=== PATIENT | male | born 1950 | race Caucasian/White ===

== ENCOUNTER → 2017-07-15 | Outpatient (RCR) | payer MEDICARE, OTHER | END | disposition home or self-care (01) | LOC: ONC 04-02 10:31 | PROVIDERS: ATTEND Radiology Radiation Oncology | DX: C61 Malignant neoplasm of prostate (principal) | CPT/HCPCS: 76873; 99214 ==

== ENCOUNTER 2017-08-19 14:04 | Outpatient (RCR) | payer MEDICARE, OTHER ==
[2017-10-24] MEDS ORDERED: GABA-488 PO (11:57)
[2017-10-24] MEDS ORDERED: ACHD5005 PO (11:57)
[2017-10-24] MEDS ORDERED: TRAZ100T92 PO (11:57)
[2017-10-24] MEDS ORDERED: LORA0.5T PO (11:57)
[2017-10-24] MEDS ORDERED: METF1000 PO (11:57)
[2017-10-24] MEDS ORDERED: ATOR10TA66 PO (11:57)
[2017-10-24] MEDS ORDERED: DULA1.5P2 SQ (11:57)
[2017-11-05] MEDS ORDERED: ACET1TAB43 PO (11:30)
[2017-11-05] MEDS ORDERED: CIPR-226 PO (11:30)
[2017-11-09] MEDS ORDERED: OXYC-202 PO (00:14)
== END 2017-11-17 | disposition home or self-care (01) ==
LOC: ONC 14:04
PROVIDERS: ATTEND Radiology Radiation Oncology
DX: C61 Malignant neoplasm of prostate (principal)
CPT/HCPCS: 76873

== ENCOUNTER 2017-10-24 11:45 | Outpatient (CLI) | payer MEDICARE, OTHER ==
[~2017-10-24] VITALS: Ht 167.6 cm; Wt 104.9 kg
[2017-10-24] MEDS ORDERED: ATOR10TA66 PO (11:57)
[2017-10-24] MEDS ORDERED: GABA-488 PO (11:57)
[2017-10-24] MEDS ORDERED: TRAZ100T92 PO (11:57)
[2017-10-24] MEDS ORDERED: METF1000 PO (11:57)
[2017-10-24] MEDS ORDERED: DULA1.5P2 SQ (11:57)
[2017-10-24] MEDS ORDERED: ACHD5005 PO (11:57)
[2017-10-24] MEDS ORDERED: LORA0.5T PO (11:57)
[2017-10-24 12:02] VITALS: BP 115/74
[2017-10-24 12:45] LABS: BILIRUBIN,URINE NEGATIVE (NEGATIVE); CLARITY,URINE CLEAR; COLOR,URINE YELLOW; GLUCOSE, URINE (UA) 2+ (NEGATIVE); KETONES,URINE NEGATIVE (NEGATIVE); LEUKOCYTE ESTERASE ,URINE 3+ (NEGATIVE); NITRITE,URINE NEGATIVE (NEGATIVE); PH,URINE 5 (5-9); PROTEIN,URINE NEGATIVE (NEGATIVE); UROBILINOGEN,URINE NORMAL (NORMAL)
--- NOTE | 2017-10-24 13:01 | Diagnostic Imaging Report ---
CLINICAL INDICATION: Preop chest x-ray for prostate brachytherapy. EXAM: Chest x-ray, PA and lateral views. COMPARISON: None. FINDINGS: LUNGS/PLEURA: There is a 6 mm dense nodular area involving the lateral left lung base. Otherwise, the lungs are clear. There is no pneumothorax. There is no pleural effusion. MEDIASTINUM: Unremarkable. PULMONARY VASCULATURE: Unremarkable. HEART: Unremarkable. BONES/EXTRATHORACIC SOFT TISSUE: There are moderately hypertrophic degenerative osteophytes scattered throughout the thoracic spine. IMPRESSION: 1. There is no radiographic evidence of acute cardiopulmonary process. 2. There is a 6 mm dense nodular area overlying the lateral left lung base. This may represent a calcified granuloma or sclerosis of the adjacent anterior left T7 rib versus parenchymal opacity. Comparison with prior chest x-rays would help better evaluate; otherwise, a chest CT scan is suggested for further evaluation. Dictated by: Dictated on workstation # [id number]
[2017-10-24 13:09] LABS: BACTERIA,URINE NEGATIVE /HPF; SQUAMOUS EPITHELIAL CELL,UR RARE /HPF
== END 2017-10-24 12:30 ==
LOC: PREOP 11:45
PROVIDERS: ATTEND Radiology Radiation Oncology
DX: Z01.810 Encounter for preprocedural cardiovascular examination (principal); Z01.812 Encounter for preprocedural laboratory examination; Z11.2 Encounter for screening for other bacterial diseases; C61 Malignant neoplasm of prostate; R82.90 Unspecified abnormal findings in urine
CPT/HCPCS: 71046; 81000; 87081; 87088

== ENCOUNTER 2017-11-05 10:00 | Day surgery (SDC) | payer MEDICARE, OTHER ==
[~2017-11-05] VITALS: Ht 167.6 cm; Wt 104.9 kg
[~2017-11-05 10:00] MED LIST: ACHD5005 PO; ATOR10TA66 PO; DULA1.5P2 SQ; GABA-488 PO; LORA0.5T PO; METF1000 PO; TRAZ100T92 PO
[2017-11-05] MEDS ORDERED: LACTATED RINGERS 1,000 ML IV PRN (10:05)
[2017-11-05] MEDS ORDERED: LEVOFLOXACIN 500 MG/100 ML IV 100 ML IV ONE (10:15)
[2017-11-05 10:27] VITALS: BP 128/86
--- NOTE | 2017-11-05 11:13 | Progress Note-Pre Operative ---
Pre-Operative Progress Note H&P Reviewed The H&P was reviewed, patient examined and no changes noted. Date Seen by Provider: Nov 05, 2017 Time Seen by Provider: 11:12 Date H&P Reviewed: Nov 05, 2017 Time H&P Reviewed: 11:13 Pre-Operative Diagnosis: Prostate cancer cT2b, PSA 9.1, [place] 9 OREN SUBRAMANIAN MD Nov 05, 2017 11:13
--- NOTE | 2017-11-05 11:19 | Discharge Inst-Simple/Standard ---
Discharge Inst-Standard Discharge Medications New, Converted or Re-Newed RX: RX Given to Pt/Family Patient Instructions/Follow Up Plan of Care/Instructions/FU: 1)One month follow up post implant at cancer center 12/03/17 at 10:30 am 2)Keep appt with Dr. Barber as scheduled for 12/02/17 at 10:30 am Activity as Tolerated: Yes Discharge Diet: No Restrictions Other Inst to Patient Take maria out 2 days post implant at 8 am. OREN SUBRAMANIAN MD Nov 05, 2017 11:18
[2017-11-05] MEDS ORDERED: ACET1TAB43 PO (11:30)
[2017-11-05] MEDS ORDERED: CIPR-226 PO (11:30)
[2017-11-05] MEDS ORDERED: proPOfol 200 MG/20 ML (DIPRIVAN) VIAL IV ONE (11:35)
[2017-11-05] MEDS ORDERED: SEVOFLURANE (ULTANE) 15 ML INHAL SOLN ONE ×3 (11:35→12:00)
[2017-11-05] MEDS ORDERED: LIDOCAINE PF 2% 5 ML (XYLOCAINE) VIAL ONE (11:35)
[2017-11-05] MEDS ORDERED: ONDANSETRON 4 MG/2 ML (SDV) Z0FRAN ONE (11:35)
[2017-11-05] MEDS ORDERED: MIDAZOLAM 2 MG/2 ML (VERSED) VIAL ONE (11:36)
[2017-11-05] MEDS ORDERED: fentaNYL INJECTION 100 MCG/2 ML AMP ONE (11:36)
[2017-11-05] MEDS ORDERED: NEOSTIGMINE (BLOXIVERZ ) 1 MG/1ML 10 ML VIAL ONE (12:45)
[2017-11-05] MEDS ORDERED: GLYCOPYRROLATE 0.2 MG/ML (ROBINUL) 2 ML VIAL ONE (12:45)
[2017-11-05] MEDS ORDERED: ROCURONIUM 50 MG/5 ML (ZEMURON) VIAL IV ONE (13:07)
[2017-11-05 14:20] VITALS: BP 95/61
--- NOTE | 2017-11-05 14:26 | Progress Note-Post Operative ---
Post-Operative Progess Note Surgeon (s)/Manager Cable (s) Surgeon OREN SUBRAMANIAN MD Manager Cable: Jak BENDER MD Pre-Operative Diagnosis Prostate cancer cT2b, PSA 9.1, [place] 9 Post-Operative Diagnosis Same as pre-op Procedure & Operative Findings Date of Procedure 11/05/17 Procedure Performed/Findings 67% Cesium 131 permanent prostate seed implant with cystogram Prostate volume 35.8 cc Anesthesia Type General Estimated Blood Loss Estimated blood loss (mL): Minimal Specimens/Packing Specimens Removed None Packing: None OREN SUBRAMANIAN MD Nov 05, 2017 14:26
[2017-11-05 14:50] VITALS: BP 103/72
[2017-11-05 15:35] VITALS: BP 103/72
--- NOTE | 2017-11-05 19:06 | Diagnostic Imaging Report ---
INDICATION: Brachytherapy EXAMINATION: Fluoroscopy. Fluoroscopic assistance was provided for Dr. Min Hein. 9 seconds of fluoroscopy time was utilized. FINDINGS: A single spot film of the pelvis was received from the OR. There is a Isaac catheter within the bladder. The bladder has been partially opacified but for the most part the bladder appears to be decompressed. There are numerous radiopaque metallic seed implants in the region of the prostate gland. IMPRESSION: Fluoroscopic assistance was provided for Dr. Min Trujillo. Dictated by: Dictated on workstation # [id number]
== END 2017-11-05 15:35 | disposition home or self-care (01) ==
LOC: SDC 10:00
PROVIDERS: ATTEND Radiology Radiation Oncology
DX: C61 Malignant neoplasm of prostate (principal); E78.5 Hyperlipidemia, unspecified; G47.33 Obstructive sleep apnea (adult) (pediatric); Z87.891 Personal history of nicotine dependence; Z87.442 Personal history of urinary calculi; E11.9 Type 2 diabetes mellitus without complications; E66.9 Obesity, unspecified; Z79.899 Other long term (current) drug therapy; Z79.84 Long term (current) use of oral hypoglycemic drugs; Z88.8 Allergy status to other drugs, medicaments and biological substances; Z68.37 Body mass index [BMI] 37.0-37.9, adult; F32.9 Major depressive disorder, single episode, unspecified
CPT/HCPCS: 76965; 77290; 77318; 77332; 77336; 77470; 77778; 82962

== ENCOUNTER 2017-11-08 21:32 | Emergency (ER) | payer MEDICARE, OTHER ==
[~2017-11-08] VITALS: Ht 167.6 cm; Wt 99.8 kg
[~2017-11-08 21:32] MED LIST changes: +ACET1TAB43 PO; +CIPR-226 PO
[2017-11-08] MEDS ORDERED: NS IV 1000 ML 1,000 ML IV SCH (22:15)
[2017-11-08] MEDS ORDERED: KETOROLAC 30 MG/ML VIAL IVP ONE (22:15)
[2017-11-08] MEDS ORDERED: fentaNYL INJECTION 100 MCG/2 ML AMP IVP ONE (22:15)
--- NOTE | 2017-11-08 22:15 | ED GU-Male ---
General Chief Complaint: -Male Stated Complaint: PROSTATE PAIN Nursing Triage Note: PT TO ED 7 W/ S.O. FOR C/O PAIN TO BLADDER ONSET AFTER HAVING GEORGES REMOVED YESTERDAY AFTER SEED PLACEMENT FOR PROSTATE CA. REPORTS DID TALK W/ PCP CONCERNING PAIN, FLOMAX WAS PRESCRIBED BUT DENIES IMPROVEMENT W/ FLOMAX ET TYLENOL W/ CODEINE Source: patient Exam Limitations: no limitations (JEFFRY VASQUEZ APRN) History of Present Illness Date Seen by Provider: Nov 08, 2017 Time Seen by Provider: 22:14 Initial Comments To ER with perineal, suprapubic and right-sided abdominal pain. He had prostate seeds placed [address] Trujillo for prostate cancer. He's been taking his prescribed Tylenol No. 3 at home without relief. Left over hydrocodone which she also took without relief. Timing/Duration: this morning Severity/Quality: moderate Location: unknown Radiation: none Activities at Onset: none Associated Symptoms: dysuria (JEFFRY VASQUEZ APRN) Allergies and Home Medications Allergies Coded Allergies: prednisone (Verified Allergy, Mild, ELEVATED BLOOD SUGARS, 10/24/17) Home Medications Acetaminophen with Codeine 1 Each Tablet, 1 EACH PO PRN, #15 Ref 0 Prescribed by: OREN SUBRAMANIAN on 11/05/17 1130 Atorvastatin Calcium 10 Mg Tablet, 10 MG PO DAILY, (Reported) Ciprofloxacin HCl 250 Mg Tablet, 250 MG PO BID for 3 Days, #6 Ref 0 Prescribed by: OREN SUBRAMANIAN on 11/05/17 1130 Dulaglutide 1.5 Mg/0.5 Ml Pen.injctr, 1.5 MG SQ DAILY, (Reported) Gabapentin 300 Mg Capsule, 300 MG PO DAILY, (Reported) Hydrocodone Bit/Acetaminophen 1 Tab Tab, 1 TAB PO PRN, (Reported) Lorazepam 0.5 Mg Tablet, 0.5 MG PO PRN, (Reported) Metformin HCl 1,000 Mg Tablet, 1,000 MG PO DAILY, (Reported) Trazodone HCl 100 Mg Tablet, 100 MG PO HS, (Reported) Constitutional: see HPI EENTM: see HPI Respiratory: no symptoms reported Cardiovascular: no symptoms reported Genitourinary: no symptoms reported Musculoskeletal: no symptoms reported Skin: no symptoms reported Psychiatric/Neurological: No Symptoms Reported Endocrine: No Symptoms Reported (JEFFRY VASQUEZ APRN) Past Olwgjjt-Akkwmx-Rhlosu Hx Patient Social History Alcohol Use: Denies Use Recreational Drug Use: No Smoking Status: Never a Smoker Former Smoker, Quit: Oct 24, 2013 Recent Foreign Travel: No Contact w/Someone Who Travel: No Recent Infectious Disease Expo: No Recent Hopitalizations: No Physical Abuse: No Sexual Abuse: No Mistreated: No Fear: No (JEFFRY VASQUEZ APRN) Immunizations Up To Date Date of Influenza Vaccine: Aug 04, 2017 (JEFFRY VASQUEZ APRN) Seasonal Allergies Seasonal Allergies: No (JEFFRY VASQUEZ APRN) Surgeries History of Surgeries: Yes (KIDNEY STONES, INGUINAL HERNIA) (JEFFRY VASQUEZ APRN) Respiratory History of Respiratory Disorde: Yes Respiratory Disorders: Sleep Apnea Currently Using CPAP: Yes (JEFFRY VASQUEZ APRN) Cardiovascular History of Cardiac Disorders: Yes Cardiac Disorders: High Cholesterol (JEFFRY VASQUEZ APRN) Neurological History of Neurological Disord: No (JEFFRY VASQUEZ APRN) Reproductive System Hx Reproductive Disorders: No Sexually Transmitted Disease: No HIV/AIDS: No (JEFFRY VASQUEZ APRN) Genitourinary Genitourinary Disorders: Prostate Problems, Kidney Stones (JEFFRY VASQUEZ APRN) Gastrointestinal History of Gastrointestinal Di: Yes Gastrointestinal Disorders: Polyps (JEFFRY VASQUEZ APRN) Musculoskeletal History of Musculoskeletal Dis: Yes Musculoskeletal Disorders: Chronic Back Pain (JEFFRY VASQUEZ APRN) Endocrine History of Endocrine Disorders: Yes (JEFFRY VASQUEZ APRN) HEENT Loss of Vision: Bilateral Hearing Impairment: Denies (JEFFRY VASQUEZ APRN) Cancer History of Cancer: Yes Cancer: Prostate (JEFFRY VASQUEZ APRN) Psychosocial History of Psychiatric Problem: No Suicide Risk Score: 0 (JEFFRY VASQUEZ APRN) Integumentary History of Skin or Integumenta: No (JEFFRY VASQUEZ APRN) Blood Transfusions History of Blood Disorders: No Adverse Reaction to a Blood Tr: No (JEFFRY VASQUEZ APRN) Physical Exam Vital Signs Vital Sign - Last 12Hours 11/08/17 21:47 Temp 97.9 Pulse 88 Resp 20 B/P (MAP) 141/85 (103) Pulse Ox 95 O2 Delivery Room Air (PILI CALIXTO) Vital Signs Capillary Refill : Less Than 3 Seconds (JEFFRY VASQUEZ APRN) General Appearance: WD/WN, no apparent distress HEENT: PERRL/EOMI, normal ENT inspection Neck: non-tender, full range of motion Respiratory: no respiratory distress, no accessory muscle use Gastrointestinal: non tender, soft Extremities: normal range of motion, non-tender Neurologic/Psychiatric: alert, normal mood/affect, oriented x 3 Skin: normal color, warm/dry (JEFFRY VASQUEZ APRN) Progress/Results/Core Measures Suspected Sepsis Recent Fever Within 48 Hours: No Infection Criteria Present: None New/Unexplained Altered Menta: No Sepsis Screen: No Definite Risk Sepsis Diagnosis: SIRS Temperature:97.9 Pulse: 88 Respiratory Rate: 20 Blood Pressure 141 /85 Mean: 103 (JEFFRY VASQUEZ APRN) Results/Orders Lab Results Laboratory Tests Test 11/08/17 22:16 11/08/17 23:43 Range/Units White Blood Count 9.1 4.3-11.0 10^3/uL Red Blood Count 4.22 L 4.35-5.85 10^6/uL Hemoglobin 13.5 13.3-17.7 G/DL Hematocrit 38 L 40-54 % Mean Corpuscular Volume 90 80-99 FL Mean Corpuscular Hemoglobin 32 25-34 PG Mean Corpuscular Hemoglobin Concent 36 32-36 G/DL Red Cell Distribution Width 12.2 10.0-14.5 % Platelet Count 200 130-400 10^3/uL Mean Platelet Volume 10.0 7.4-10.4 FL Neutrophils (%) (Auto) 77 H 42-75 % Lymphocytes (%) (Auto) 12 12-44 % Monocytes (%) (Auto) 8 0-12 % Eosinophils (%) (Auto) 3 0-10 % Basophils (%) (Auto) 0 0-10 % Neutrophils # (Auto) 7.0 1.8-7.8 X 10^3 Lymphocytes # (Auto) 1.1 1.0-4.0 X 10^3 Monocytes # (Auto) 0.8 0.0-1.0 X 10^3 Eosinophils # (Auto) 0.2 0.0-0.3 10^3/uL Basophils # (Auto) 0.0 0.0-0.1 10^3/uL Sodium Level 140 135-145 MMOL/L Potassium Level 3.5 L 3.6-5.0 MMOL/L Chloride Level 104 98-107 MMOL/L Carbon Dioxide Level 20 L 21-32 MMOL/L Anion Gap 16 H 5-14 MMOL/L Blood Urea Nitrogen 11 7-18 MG/DL Creatinine 0.83 0.60-1.30 MG/DL Estimat Glomerular Filtration Rate > 60 BUN/Creatinine Ratio 13 Glucose Level 167 H 70-105 MG/DL Calcium Level 9.6 8.5-10.1 MG/DL Urine Color RED H Urine Clarity BLOODY H Urine pH 5 5-9 Urine Specific [place] 1.015 L 1.016-1.022 Urine Protein 4+ NEGATIVE Urine Glucose (UA) NEGATIVE NEGATIVE Urine Ketones 1+ H NEGATIVE Urine Nitrite NEGATIVE NEGATIVE Urine Bilirubin NEGATIVE NEGATIVE Urine Urobilinogen NORMAL NORMAL MG/DL Urine Leukocyte Esterase 2+ H NEGATIVE Urine RBC (Auto) 5+ H NEGATIVE Urine RBC TNTC H /HPF Urine WBC 0-2 /HPF Urine Squamous Epithelial Cells RARE /HPF Urine Crystals NONE /LPF Urine Bacteria TRACE /HPF Urine Casts NONE /LPF Urine Mucus NEGATIVE /LPF Urine Culture Indicated NO (PILI CALIXTO) Medications Given in ED Current Medications Medications Dose Ordered Sig/Nima Route Start Time Stop Time Status Last Admin Dose Admin Fentanyl Citrate 50 mcg ONCE ONCE IVP 11/08/17 22:15 11/08/17 22:16 DC 11/08/17 22:20 50 MCG Iohexol 100 ml ONCE ONCE IV 11/08/17 23:15 11/08/17 23:16 DC 11/08/17 23:16 100 ML Ketorolac Tromethamine 30 mg ONCE ONCE IVP 11/08/17 22:15 11/08/17 22:16 DC 11/08/17 22:21 30 MG Sodium Chloride 100 ml ONCE ONCE IV 11/08/17 23:15 11/08/17 23:16 DC 11/08/17 23:16 80 ML (PILI CALIXTO) Vital Signs/I&O Vital Sign - Last 12Hours 11/08/17 21:47 Temp 97.9 Pulse 88 Resp 20 B/P (MAP) 141/85 (103) Pulse Ox 95 O2 Delivery Room Air (PILI CALIXTO) Vital Signs/I&O Capillary Refill : Less Than 3 Seconds (JEFFRY VASQUEZ APRN) Blood Pressure Mean: 103 Progress Note : Time: 00:05 Progress Note Distended bladder on CT as well as postvoid residual showing about 600 cc organ would insert a Georges catheter get a urine and if he has an infection we will treat it; otherwise we will have him follow up with urology outpatient. (PILI CALIXTO) Diagnostic Imaging Diagonstic Imaging: CT Plain Films/CT/US/NM/MRI: abdomen, pelvis Comments Enlarged bladder distended with urine and moderate distention of bilateral ureters. Stat read impression: Significant distention of the urinary bladder and mild distention of the bilateral hydronephrosis. Recent postoperative changes with placement of radiation seeds in the prostate. No evidence of bowel obstruction. Reviewed: Reviewed [place] Study, Reviewed by Me (PILI CALIXTO) Transfer of Care Transfer of Care Time: 23:00 Care transferred to: Terrell (PILI CALIXTO) Departure Impression Impression: Primary Impression: Postprocedural urinary retention Disposition: HOME, SELF-CARE Condition: Improved Departure-Patient Inst. Decision time for Depature: 00:12 (PILI CALIXTO) Referrals: NO,LOCAL PHYSICIAN (PCP/Family) Primary Care Physician Patient Instructions: How to Care for Your Georges Catheter, Male Add. Discharge Instructions: No evidence of infection on your urine analysis. Keep Georges catheter clean with soap and water daily. If you begin to have fevers, chills, nausea and vomiting all up with your primary care physician or urologist or return to the ER immediately. Otherwise Friday morning tomorrow call your urologist and plan to get an appointment to follow up for having a Georges catheter placed. Always keep the Georges catheter bag below the level of your bladder. Drink plenty of fluids. If you have more pain you may take Percocet 1-2 tablets every 6 hours as needed to control your pain but if you're using hydrocodone or Percocet you should also be using a daily laxative such as MiraLAX to prevent constipation. All discharge instructions reviewed with patient and/or family. Voiced understanding. Scripts Oxycodone HCl/Acetaminophen (Percocet 10-325 mg Tablet) 1 Each Tablet 1-2 EACH PO Q6H Y for BREAKTHROUGH PAIN, #30 TAB 0 Refills Prov: PILI CALIXTO 11/09/17 JEFFRY VASQUEZ APRN Nov 08, 2017 22:15 PILI CALIXTO Nov 09, 2017 00:06
[2017-11-08] MEDS ORDERED: NS IV 1000 ML 1,000 ML ONE (22:17)
[2017-11-08 22:32] LABS: BASOPHILS % (AUTO) 0 % (0-10); EOSINOPHILS # (AUTO) 0.2 10^3/uL (0.0-0.3); EOSINOPHILS % (AUTO) 3 % (0-10); HEMATOCRIT 38 % (40-54); HEMOGLOBIN 13.5 G/DL (13.3-17.7); LYMPHOCYTES # (AUTO) 1.1 X 10^3 (1.0-4.0); LYMPHOCYTES % (AUTO) 12 % (12-44); MEAN CORPUSCULAR HEMOGLOBIN 32 PG (25-34); MEAN CORPUSCULAR HGB CONC 36 G/DL (32-36); MEAN CORPUSCULAR VOLUME 90 FL (80-99); MONOCYTES # (AUTO) 0.8 X 10^3 (0.0-1.0); MONOCYTES % (AUTO) 8 % (0-12); NEUTROPHILS % (AUTO) 77 % (42-75); PLATELET COUNT 200 10^3/uL (130-400); RED BLOOD COUNT 4.22 10^6/uL (4.35-5.85); RED CELL DISTRIBUTION WIDTH 12.2 % (10.0-14.5); WHITE BLOOD COUNT 9.1 10^3/uL (4.3-11.0)
[2017-11-08 22:55] LABS: BUN/CREATININE RATIO 13; CALCIUM 9.6 MG/DL (8.5-10.1); CARBON DIOXIDE 20 MMOL/L (21-32); CHLORIDE 104 MMOL/L (98-107); CREATININE SERUM 0.83 MG/DL (0.60-1.30); GFR ESTIMATED > 60; GLUCOSE 167 MG/DL (70-105); POTASSIUM 3.5 MMOL/L (3.6-5.0); SODIUM 140 MMOL/L (135-145)
[2017-11-08] MEDS ORDERED: IOHEXOL 350 MG/ML 100 ML (OMNIPAQUE 350) VIAL IV ONE (23:15)
[2017-11-08] MEDS ORDERED: NS 100 ML (IVPB) BAG IV ONE (23:15)
[2017-11-08 23:54] LABS: BILIRUBIN,URINE NEGATIVE (NEGATIVE); CLARITY,URINE BLOODY; COLOR,URINE RED; GLUCOSE, URINE (UA) NEGATIVE (NEGATIVE); KETONES,URINE 1+ (NEGATIVE); LEUKOCYTE ESTERASE ,URINE 2+ (NEGATIVE); NITRITE,URINE NEGATIVE (NEGATIVE); PH,URINE 5 (5-9); PROTEIN,URINE 4+ (NEGATIVE); UROBILINOGEN,URINE NORMAL (NORMAL)
[2017-11-09 00:03] LABS: BACTERIA,URINE TRACE /HPF; RBC,URINE TNTC /HPF; SQUAMOUS EPITHELIAL CELL,UR RARE /HPF; WBC,URINE 0-2 /HPF
[2017-11-09] MEDS ORDERED: OXYC-202 PO (00:14)
[2017-11-09 00:40] VITALS: BP 113/74
--- NOTE | 2017-11-09 08:56 | Diagnostic Imaging Report ---
PROCEDURE: CT abdomen and pelvis with contrast. TECHNIQUE: Multiple contiguous axial images were obtained through the abdomen and pelvis after administration of intravenous contrast. INDICATION: Bladder pain after Isaac catheter removed. The patient has had recent radiation seed placement for prostate cancer. History of nephrolithiasis. No prior examinations are available for comparison. FINDINGS: The heart size is normal. The lung bases are clear. There is fatty infiltration of the liver. Gallbladder is unremarkable. There is no biliary ductal dilatation. Spleen is normal. The pancreas and adrenal glands are unremarkable. There may be some minimal bilateral hydronephrosis. There is moderate distention of the bladder. Multiple radiation seeds are seen within the prostate. The bowel gas pattern is nonspecific. There is no free air. There is no ascites. There are no focal inflammatory changes. Abdominal aorta is nonaneurysmal. There are degenerative changes in the spine. IMPRESSION: Moderate distention urinary bladder with questionable mild bilateral hydronephrosis. Recent postoperative changes with placement of radiation seeds in the prostate. No other acute abnormality in the abdomen or pelvis. Specifically, there is no evidence of bowel obstruction. Dictated by: Dictated on workstation # [id number]
== END 2017-11-09 00:40 | disposition home or self-care (01) ==
LOC: EDUNIT# 21:32 → ER 21:34
DX: N99.89 Other postprocedural complications and disorders of genitourinary system (principal); R33.8 Other retention of urine; C61 Malignant neoplasm of prostate; E78.00 Pure hypercholesterolemia, unspecified; G47.30 Sleep apnea, unspecified; Z87.891 Personal history of nicotine dependence; Z87.19 Personal history of other diseases of the digestive system; Z79.84 Long term (current) use of oral hypoglycemic drugs; Z87.442 Personal history of urinary calculi
CPT/HCPCS: 36415; 51702; 74177; 80048; 81000; 85025; 96361; 96374; 96375

== ENCOUNTER → 2017-12-03 | Outpatient (CLI) | payer MEDICARE, OTHER ==
[~2017-12-03] MED LIST changes: +IOHEXOL 350 MG/ML 100 ML (OMNIPAQUE 350) VIAL IV ONE; +NS 250 ML (IVPB) BAG IV ONE; +OXYC-202 PO
--- NOTE | 2017-12-03 11:41 | Diagnostic Imaging Report ---
PROCEDURE: CT chest with contrast only. TECHNIQUE: Multiple contiguous axial images were obtained through the chest after administration of intravenous contrast. INDICATION: Prostate carcinoma. COMPARISON: No prior studies are available for comparison. FINDINGS: No axillary lymphadenopathy is detected. There are some calcified lymph nodes in the subcarinal location, likely owing to prior granulomatous exposure. There are some calcified lymph nodes in the left hilum as well. No definite mediastinal or hilar lymphadenopathy is identified. No pericardial or pleural fluid is detected. No noncalcified pulmonary nodules are detected. There is calcified granuloma in the left lower lobe. The upper abdomen does demonstrate hepatic steatosis. No adrenal mass is identified. The bony structures demonstrate thoracic spondylosis but no other significant abnormality. IMPRESSION: Essentially unremarkable CT of the chest, without evidence of thoracic lymphadenopathy or pulmonary metastatic disease. Dictated by: Dictated on workstation # [id number]
== END ==
LOC: RAD 10:49
PROVIDERS: ATTEND Nurse Practitioner Family
DX: C61 Malignant neoplasm of prostate (principal)
CPT/HCPCS: 71260

== ENCOUNTER 2018-02-04 10:35 | Outpatient (RCR) | payer MEDICARE, OTHER ==
[~2018-02-04 10:35] MED LIST changes: -IOHEXOL 350 MG/ML 100 ML (OMNIPAQUE 350) VIAL IV ONE; -METF1000 PO; +METF10002 PO; -NS 250 ML (IVPB) BAG IV ONE
== END 2018-03-03 | disposition home or self-care (01) ==
LOC: ONC 10:35
PROVIDERS: ATTEND Radiology Radiation Oncology
DX: Z51.0 Encounter for antineoplastic radiation therapy (principal); C61 Malignant neoplasm of prostate
CPT/HCPCS: 77290; 77295; 77300; 77301; 77334; 77336; 77338; 77385; 77470

== ENCOUNTER 2018-04-07 15:35 | Outpatient (RCR) | payer MEDICARE, OTHER ==
[~2018-04-07 15:35] MED LIST changes: +METF-399 PO; -METF10002 PO; -OXYC-202 PO; +OXYC1TAB12 PO; +TRAZ-190 PO; -TRAZ100T92 PO
== END 2018-07-06 | disposition home or self-care (01) ==
LOC: ONC 15:35
PROVIDERS: ATTEND Radiology Radiation Oncology
DX: C61 Malignant neoplasm of prostate (principal)
CPT/HCPCS: 99213

== ENCOUNTER 2023-02-25 12:48 | Outpatient (RCR) | payer MEDICARE, OTHER ==
[~2023-02-25 12:48] MED LIST changes: +ACET-11 PO; -ACET1TAB43 PO; -TRAZ-190 PO; +TRAZ-227 PO
[2023-02-25 14:09] LABS: BASOPHILS % (AUTO) 0 % (0-10); EOSINOPHILS # (AUTO) 0.2 10^3/uL (0.0-0.3); EOSINOPHILS % (AUTO) 4 % (0-10); HEMATOCRIT 40 % (40-54); LYMPHOCYTES # (AUTO) 0.9 10^3/uL (1.0-4.0); LYMPHOCYTES % (AUTO) 13 % (12-44); MEAN CORPUSCULAR HEMOGLOBIN 33 pg (25-34); MEAN CORPUSCULAR HGB CONC 35 g/dL (32-36); MEAN CORPUSCULAR VOLUME 95 fL (80-99); MONOCYTES # (AUTO) 0.6 10^3/uL (0.0-1.0); MONOCYTES % (AUTO) 9 % (0-12); NEUTROPHILS % (AUTO) 73 % (42-75); PLATELET COUNT 150 10^3/uL (130-400); WHITE BLOOD COUNT 6.8 10^3/uL (4.3-11.0)
[2023-02-25 14:37] LABS: ALBUMIN 3.7 GM/DL (3.2-4.5); BILIRUBIN,TOTAL 0.6 MG/DL (0.1-1.0); CREATININE SERUM 0.81 MG/DL (0.60-1.30); POTASSIUM 4.2 MMOL/L (3.6-5.0); TOTAL PROTEIN 6.7 GM/DL (6.4-8.2)
== END 2023-03-19 | disposition home or self-care (01) ==
LOC: ONC 12:48
PROVIDERS: ATTEND Internal Medicine Hematology & Oncology
DX: C61 Malignant neoplasm of prostate (principal); E11.9 Type 2 diabetes mellitus without complications; E78.00 Pure hypercholesterolemia, unspecified
CPT/HCPCS: 80053; 84153; 85025

== ENCOUNTER 2023-08-20 12:54 | Outpatient (RCR) | payer MEDICARE | END 2023-09-18 | disposition home or self-care (01) | LOC: ONC 12:54 | PROVIDERS: ATTEND Internal Medicine Hematology & Oncology | DX: C61 Malignant neoplasm of prostate (principal); E11.9 Type 2 diabetes mellitus without complications; E78.00 Pure hypercholesterolemia, unspecified | CPT/HCPCS: 84153; G0463; 36415; 99214 ==